=== PATIENT | female | born 1985 | race Hispanic/Latino ===

== ENCOUNTER → 2023-10-05 10:55 | Outpatient (REF) | payer OTHER, SELFPAY ==
[2023-10-05 12:31] LABS: Vitamin D, 25-OH*** 22.5 ng/mL (30-80)
== END ==
LOC: REG 10:55
PROVIDERS: ATTENDING PHYSICIAN Internal Medicine
DX: E55.9 Vitamin D deficiency, unspecified (principal)
CPT/HCPCS: 36415; 82306

== ENCOUNTER → 2024-05-02 11:55 | Outpatient (REF) | payer OTHER, SELFPAY ==
[2024-05-05 09:49] LABS: Vitamin D 1,25 Dihydroxy 57.8 pg/mL (19.9-79.3)
== END ==
LOC: CLINIC 11:55
PROVIDERS: ATTENDING PHYSICIAN Internal Medicine
DX: E55.9 Vitamin D deficiency, unspecified (principal)
CPT/HCPCS: 36415; 82652

== ENCOUNTER → 2024-10-27 13:31 | Outpatient (REF) | payer OTHER, SELFPAY ==
[2024-10-27 14:46] LABS: Vitamin D, 25-OH*** 26.3 ng/mL (30-80)
[2024-10-27 15:02] LABS: Glycohemoglobin (HgbA1c) 5.5 % (4.0-5.6)
== END ==
LOC: CLINIC 13:31
PROVIDERS: ATTENDING PHYSICIAN Internal Medicine
DX: Z13.1 Encounter for screening for diabetes mellitus (principal); E55.9 Vitamin D deficiency, unspecified
CPT/HCPCS: 36415; 82306; 83036